=== PATIENT | male | born 1960 | race Caucasian/White ===

== ENCOUNTER 2018-12-08 21:50 | Emergency (ER) | payer MEDICAID, SELFPAY ==
[2018-12-08] MEDS ORDERED: Lidocaine 1% 10 ML MDV INJECT ONE (22:23)
[2018-12-08] MEDS ORDERED: Lidocaine 1% 50 ML MDV ONE (22:29)
--- NOTE | 2018-12-08 22:35 | EDM.PDOC ---
ED HPI GENERAL MEDICAL PROBLEM - General Chief Complaint: Trauma Stated Complaint: FELL AND CUT LEFT EARLOBE Time Seen by Provider: 12/08/18 22:00 Source of Information: Reports: Patient History Limitations: Reports: No Limitations - History of Present Illness INITIAL COMMENTS - FREE TEXT/NARRATIVE: 58 y/o male presented to ER with cc left ear laceration. He states he was outside when he fell and struck his left ear on his car. He does admit to drinking alcohol. His tetanus is up to date. He denies headache or neck pain. Trauma was called. Dr. Perez is at bedside evaluating patient Onset: Today, Sudden Onset Date: 12/08/18 Onset Time: 21:00 Location: Reports: Face, Other (left ear laceration) Quality: Reports: Ache, Stabbing Improves with: Reports: None, Medication Context: Reports: Trauma Associated Symptoms: Denies: Confusion, Fever/Chills, Nausea/Vomiting Left Ear Pain Score (Numeric/FACES): 4 - Related Data Allergies Allergy/AdvReac Type Severity Reaction Status Date / Time No Known Allergies Allergy Verified 03/10/16 18:24 CDT Home Meds: Home Meds Lisinopril [Prinivil] 40 mg PO DAILY 03/10/16 [History] Metoprolol Tartrate 25 mg PO DAILY 03/10/16 [History] Aspirin [Adult Low Dose Aspirin EC] 81 mg DAILY 04/30/18 [History] Citalopram Hydrobromide [Celexa] 40 mg DAILY 04/30/18 [History] Naproxen [Naprosyn] 500 mg BID 04/30/18 [History] Nitroglycerin 0.4 mg PO ASDIRECTED PRN 04/30/18 [History] Simvastatin [Zocor] 40 mg BEDTIME 04/30/18 [History] Hydrocodone/Acetaminophen [Max 7.5-325 Tablet] 1 each PO Q6HR PRN 4 Days #16 tablet 12/08/18 [Rx] cephALEXin [Keflex] 500 mg PO Q8H 7 Days #21 cap 12/08/18 [Rx] Past Medical History HEENT History: Reports: None Cardiovascular History: Reports: Hypertension, [place] Respiratory History: Reports: None Genitourinary History: Reports: None Musculoskeletal History: Reports: None Neurological History: Reports: None Psychiatric History: Reports: None Endocrine/Metabolic History: Reports: None Hematologic History: Reports: None Immunologic History: Reports: None Oncologic (Cancer) History: Reports: None Dermatologic History: Reports: None - Infectious Disease History Infectious Disease History: Reports: None - Past Surgical History Head Surgeries/Procedures: Reports: None HEENT Surgical History: Reports: None Cardiovascular Surgical History: Reports: None Respiratory Surgical History: Reports: None GI Surgical History: Reports: Appendectomy Male Surgical History: Reports: None Endocrine Surgical History: Reports: None Neurological Surgical History: Reports: None Musculoskeletal Surgical History: Reports: None Dermatological Surgical History: Reports: None Social & Family History - Family History Family Medical History: Noncontributory - Tobacco Use Smoking Status *Q: Current Every Day Smoker Years of Tobacco use: 24 Packs/Tins Daily: 1 - Recreational Drug Use Recreational Drug Use: No Review of Systems - Review of Systems Review Of Systems: See Below Constitutional: Denies: Chills, Fever Eyes: Reports: No Symptoms Ears: Reports: Other (left ear laceration). Denies: Dizziness Nose: Reports: No Symptoms Mouth/Throat: Reports: No Symptoms Respiratory: Denies: Shortness of Breath Cardiovascular: Denies: Chest Pain GI/Abdominal: Denies: Abdominal Pain Genitourinary: Reports: No Symptoms Musculoskeletal: Denies: Back Pain Skin: Reports: Wound (left ear laceration), Other Neurological: Reports: No Symptoms Psychiatric: Reports: No Symptoms ED EXAM, GENERAL - Physical Exam Exam: See Below Exam Limited By: No Limitations General Appearance: Alert, WD/WN, No Apparent Distress Eye Exam: Bilateral Eye: EOMI, PERRL Ears: Normal External Exam, Normal Canal, Hearing Grossly Normal, Normal TMs Ear Exam: Left Ear: Auricle Normal (large laceration) Nose: Normal Inspection, Normal Mucosa Throat/Mouth: Normal Inspection, Normal Lips, Normal Teeth, Normal Gums, Normal Oropharynx, Normal Voice, No Airway Compromise Head: Atraumatic, Normocephalic Neck: Normal Inspection, Supple, Non-Tender, Full Range of Motion Respiratory/Chest: No Respiratory Distress, Lungs Clear, Normal Breath Sounds, No Accessory Muscle Use, Chest Non-Tender Cardiovascular: Normal Peripheral Pulses, Regular Rate, Rhythm, No Edema, No Gallop, No JVD, No Murmur, No Rub Back Exam: Normal Inspection, Full Range of Motion Neurological: Alert, Oriented, CN II-XII Intact, Normal Gait, Normal Reflexes Psychiatric: Normal Affect, Normal Mood Skin Exam: Warm, Dry, Normal Color, No Rash, Wound/Incision (left ear auricle laceration moderate swelling noted. ) Lymphatic: No Adenopathy ED TRAUMA PROCEDURES - Laceration/Wound Repair Left Upper Anterior Ear Lac/Wound Length In cm: 10 Appearance: Irregular, Mildly Contaminated Distal NVT: Neuro & Vascular Intact Anesthetic Type: Local Local Anesthesia - Lidocaine (Xylocaine): 1% Plain Local Anesthetic Volume: 5cc Skin Prep: Chlorhexidine (Hibiciens), Providone-Iodine (Betadine) Exploration/Debridement/Repair: Wound Explored Closed With: Sutures Suture Size: 4-0 # of Sutures: 11 Suture Type: Nylon Suture Size: 4-0 # of Sutures: 3 Repaired With: Vicryl Tetanus Status Addressed: Yes Complications: No Course - Vital Signs Last Recorded V/S: Last Vital Signs Temp 96.2 F 12/08/18 22:02 Pulse 65 12/08/18 22:02 Resp 16 12/08/18 22:02 BP 140/95 H 12/08/18 22:02 Pulse Ox 99 12/08/18 22:02 - Orders/Labs/Meds Orders: Active Orders 24 hr Category Date Time Status Neck Soft Tissue [CR] Stat Exams 12/08/18 23:27 Taken Meds: Medications Discontinued Medications Generic Name Dose Route Start Last Admin Trade Name Danielle PRN Reason Stop Dose Admin Lidocaine HCl 10 ml 12/08/18 22:23 12/08/18 23:43 Xylocaine 1% INJECT 12/08/18 22:24 Not Given ONETIME ONE Lidocaine HCl Confirm 12/08/18 22:29 12/08/18 23:42 Xylocaine 1% Administered 12/08/18 22:30 Not Given Dose 50 ml .ROUTE .STK-MED ONE Lidocaine HCl 50 ml 12/08/18 22:40 12/08/18 23:42 Xylocaine 1% INJECT 12/08/18 22:41 Not Given ONETIME ONE Lidocaine HCl 50 ml 12/08/18 22:40 Xylocaine 1% INJECT 12/08/18 22:41 ONETIME ONE - Re-Assessments/Exams Free Text/Narrative Re-Assessment/Exam: 12/08/18 23:41 58 y/o male presents to ER with cc left ear laceration after falling on a car. He received laceration repair and his condition improved. I will discharge with Keflex for outpatient antibiotic therapy. I will discharge home with a small amount of pain medication. I instructed him not to drink, drive or operate machinery. Instructed to follow up with his PCP in 7-10 days to have sutures removed. Patient verbalized understanding and is comfortable with plan for discharge. He is stable at time of discharge. Departure - Departure Time of Disposition: 23:47 Disposition: Home, Self-Care 01 Condition: Good Clinical Impression: Ear lobe laceration Qualifiers: Encounter type: initial encounter Laterality: left Qualified Code(s): S01.312A - Laceration without foreign body of left ear, initial encounter Head trauma Qualifiers: Encounter type: initial encounter Qualified Code(s): S09.90XA - Unspecified injury of head, initial encounter - Discharge Information Prescriptions: Hydrocodone/Acetaminophen [Max 7.5-325 Tablet] 1 each PO Q6HR PRN 4 Days #16 tablet PRN Reason: Pain cephALEXin [Keflex] 500 mg PO Q8H 7 Days #21 cap Instructions: Skin Tear Care, [id number], Laceration Care, Adult, Head Injury , Adult, [id number] Referrals: PCP,None [Primary Care Provider] - Forms: ED Department Discharge Additional Instructions: You have been diagnosis with left ear laceration and head injury. I prescribed Keflex for antibiotic therapy. Follow up with your PCP in 7-10 days to have sutures removed or come to the ER and have them taken. Your have been prescribed Max for pain. Do not take this medication and drink, drive or operate machinery. Return to the ER for any new or acute worsening symptoms. - My Orders Last 24 Hours: My Active Orders 12/08/18 23:27 Neck Soft Tissue [CR] Stat - Assessment/Plan Last 24 Hours: My Active Orders 12/08/18 23:27 Neck Soft Tissue [CR] Stat
[2018-12-08] MEDS ORDERED: Lidocaine 1% 20 ML MDV INJECT ONE (22:40)
[2018-12-08] MEDS ORDERED: Lidocaine 1% 50 ML MDV INJECT ONE (22:40)
[2018-12-09] MEDS ORDERED: Cephalexin 500 MG Cap PO ONE (00:01)
[2018-12-09 00:34] VITALS: BP 110/75
--- NOTE | 2018-12-09 08:42 | CR ---
Neck: Two views were obtained of the posterior neck and posterior scalp Small curvilinear foreign body projected over the calvarium at the level of the mastoid sinus in a lateral direction. No additional abnormality is appreciated. Impression: 1. Curvilinear foreign body as noted above. Diagnostic code #3
== END 2018-12-09 | disposition home or self-care (01) ==
LOC: JD.ED 21:50
DX: S01.312A Laceration without foreign body of left ear, initial encounter (principal); S09.90XA Unspecified injury of head, initial encounter; I10 Essential (primary) hypertension; I25.2 Old myocardial infarction; F17.210 Nicotine dependence, cigarettes, uncomplicated; Z79.82 Long term (current) use of aspirin; Z79.899 Other long term (current) drug therapy; W17.89XA Other fall from one level to another, initial encounter
CPT/HCPCS: 12015; 70360; 99283; A9270; J2001; 12044

== ENCOUNTER 2019-10-05 14:11 | Emergency (ER) | payer MEDICAID ==
[2019-10-05] MEDS ORDERED: Sodium Chloride 0.9% 10 ML Syringe FLUSH PRN (14:22)
[2019-10-05 14:28] VITALS: BP 167/96; PULSE 69
--- NOTE | 2019-10-05 14:43 | CT ---
Head CT Technique: Multiple axial sections through the brain were obtained. Intravenous contrast was not utilized. Comparison: No prior intracranial imaging is available. Findings: Ventricles along with basal cisterns and sulci over the convexities are mildly prominent. Diminished density is noted within the periventricular white matter compatible with small vessel ischemic demyelination change. No other abnormal parenchymal densities are seen. No evidence of intracranial hemorrhage. No midline shift or mass-effect is appreciated. Atherosclerotic calcification is seen within the vertebral vessels and within the carotid siphon. Bone window settings were reviewed. Visualized mastoid sinuses are clear. Minimal mucosal thickening is partially visualized within the upper right maxillary sinus. No acute calvarial abnormality is appreciated. Impression: 1. Minimal mucosal thickening partially visualized within the upper right maxillary sinus most likely chronic. 2. Senescent change as noted above. 3. No acute intracranial abnormality is appreciated. Diagnostic code #2 This report was dictated in [place] Standard Time
--- NOTE | 2019-10-05 16:12 | MR ---
MRI brain Technique: T1 sagittal; T2, T2 FLAIR, T1 and diffusion axial; T1 FLAIR coronal images were obtained. Additional T2 gradient echo coronal and axial images were also obtained. Comparison: Previous head CT study performed earlier on the same day (2:26 PM). Findings: There may be a very minimal area of increased diffusion within the posterior right basal ganglia. No other diffusion abnormalities are seen. Normal signal void is seen within the major cerebral arteries within the skull base. Ventricles along with basal cisterns and sulci over the convexities are mildly prominent. Diffuse increased signal is identified within the periventricular and subcortical white matter which has a pattern typical of small vessel ischemic demyelination change. Several old white matter infarcts are noted within the right periventricular white matter. No other abnormal signal is seen within the brain parenchyma. No midline shift or mass-effect is appreciated. Impression: 1. Possible very minimal area of increased diffusion within the posterior right basal ganglia. Very early lacunar infarct is difficult to exclude. 2. Senescent change as noted above. 3. No additional abnormality is appreciated. Diagnostic code #3 This report was dictated in [place] Standard Time
[2019-10-05] MEDS ORDERED: Aspirin 81 MG Tab.Chew PO ONE (16:32)
--- NOTE | 2019-10-05 16:40 | EDM.PDOC ---
ED HPI GENERAL MEDICAL PROBLEM - General Chief Complaint: Neurological Problem Stated Complaint: LT ARM NUMBNESS Time Seen by Provider: 10/05/19 14:22 Source of Information: Reports: Patient History Limitations: Reports: No Limitations - History of Present Illness INITIAL COMMENTS - FREE TEXT/NARRATIVE: The patient presents with left sided facial, arm and leg numbness. This all started yesterday morning when he woke up. He has no weakness anywhere. He has never had this happen before. He has no headache, fever, chills, cough, congestion, runny nose, chest pain or shortness of breath. He has no abdominal pain, nausea or vomiting. He says he has high blood pressure and he had an OR in the past. Onset: Gradual Duration: Day(s): (2) Severity: Moderate Improves with: Reports: None Worsens with: Reports: None Associated Symptoms: Reports: No Other Symptoms - Related Data Allergies Allergy/AdvReac Type Severity Reaction Status Date / Time No Known Allergies Allergy Verified 10/05/19 14:27 Home Meds: Home Meds Metoprolol Tartrate 25 mg PO DAILY 03/10/16 [History] lisinopriL [Prinivil] 40 mg PO DAILY 03/10/16 [History] Past Medical History HEENT History: Reports: None Cardiovascular History: Reports: Hypertension, [place] Respiratory History: Reports: None Genitourinary History: Reports: None Musculoskeletal History: Reports: None Neurological History: Reports: None Psychiatric History: Reports: None Endocrine/Metabolic History: Reports: None Hematologic History: Reports: None Immunologic History: Reports: None Oncologic (Cancer) History: Reports: None Dermatologic History: Reports: None - Infectious Disease History Infectious Disease History: Reports: None - Past Surgical History Head Surgeries/Procedures: Reports: None HEENT Surgical History: Reports: None Cardiovascular Surgical History: Reports: None Respiratory Surgical History: Reports: None GI Surgical History: Reports: Appendectomy Male Surgical History: Reports: None Endocrine Surgical History: Reports: None Neurological Surgical History: Reports: None Musculoskeletal Surgical History: Reports: None Dermatological Surgical History: Reports: None Social & Family History - Family History Family Medical History: Noncontributory - Tobacco Use Smoking Status *Q: Current Every Day Smoker Years of Tobacco use: 36 Packs/Tins Daily: 0.5 - Caffeine Use Caffeine Use: Reports: None - Recreational Drug Use Recreational Drug Use: No ED ROS GENERAL - Review of Systems Review Of Systems: See Below Constitutional: Reports: No Symptoms HEENT: Reports: No Symptoms Respiratory: Reports: No Symptoms Cardiovascular: Reports: No Symptoms Endocrine: Reports: No Symptoms GI/Abdominal: Reports: No Symptoms : Reports: No Symptoms Musculoskeletal: Reports: No Symptoms Neurological: Reports: Numbness ED EXAM, NEURO - Physical Exam Exam: See Below Exam Limited By: No Limitations General Appearance: Alert, No Apparent Distress Ears: Normal External Exam Nose: Normal Inspection Head Exam: Atraumatic, Normocephalic Neck: Normal Inspection Respiratory/Chest: No Respiratory Distress, Lungs Clear, Normal Breath Sounds Cardiovascular: Regular Rate, Rhythm, No Edema, No Murmur GI/Abdominal: Soft, Non-Tender, No Organomegaly, No Mass Neurological: Alert, Other (Numbness to the left face, arm and leg. No weakness.) EKG INTERPRETATION EKG Date: 10/05/19 Time: 14:21 Rhythm: NSR Rate (Beats/Min): 60 [place]: Normal P-Wave: Present QRS: Normal ST-T: Other (Flipped T waves in V3 and V4) Course - Vital Signs Last Recorded V/S: Last Vital Signs Temp 97.3 F 10/05/19 14:22 Pulse 69 10/05/19 14:22 Resp 16 10/05/19 14:22 BP 167/96 H 10/05/19 14:22 Pulse Ox 96 10/05/19 14:22 - Orders/Labs/Meds Orders: Active Orders 24 hr Category Date Time Status Cardiac Monitoring [RC] . DIRECTED Care 10/05/19 14:22 Active EKG Documentation Completion [RC] STAT Care 10/05/19 14:23 Active Peripheral IV Care [RC] . DIRECTED Care 10/05/19 14:23 Active Sodium Chloride 0.9% [Saline Flush] Med 10/05/19 14:22 Active 10 ml FLUSH ASDIRECTED PRN Peripheral IV Insertion Adult [OM.PC] Stat Oth 10/05/19 14:22 Ordered Medication Orders Sodium Chloride (Saline Flush) 10 ml FLUSH ASDIRECTED PRN PRN Reason: Keep Vein Open Last Admin: 10/05/19 14:32 Dose: 10 ml Labs: Laboratory Tests 10/05/19 10/05/19 10/05/19 Range/Units 14:20 14:25 14:25 WBC 7.30 (4.23-9.07) K/mm3 RBC 4.66 (4.63-6.08) M/mm3 Hgb 15.2 (13.7-17.5) gm/dl Hct 44.4 (40.1-51.0) % MCV 95.3 H (79.0-92.2) fl MCH 32.6 H (25.7-32.2) pg MCHC 34.2 (32.2-35.5) g/dl RDW Std Deviation 42.3 (35.1-43.9) fL Plt Count 305 (163-337) K/mm3 MPV 9.7 (9.4-12.3) fl Neut % (Auto) 63.1 (34.0-67.9) % Lymph % (Auto) 22.1 (21.8-53.1) % [place] % (Auto) 11.0 (5.3-12.2) % Eos % (Auto) 2.9 (0.8-7.0) Baso % (Auto) 0.8 (0.1-1.2) % Neut # (Auto) 4.61 (1.78-5.38) K/mm3 Lymph # (Auto) 1.61 (1.32-3.57) K/mm3 [place] # (Auto) 0.80 (0.30-0.82) K/mm3 Eos # (Auto) 0.21 (0.04-0.54) K/mm3 Baso # (Auto) 0.06 (0.01-0.08) K/mm3 PT 10.6 (9.7-12.0) SECONDS INR 0.97 APTT 26 (22-31) SECONDS Sodium (136-145) mEq/L Potassium (3.5-5.1) mEq/L Chloride (98-107) mEq/L Carbon Dioxide (21-32) mEq/L Anion Gap (5-15) BUN (7-18) mg/dL Creatinine (0.7-1.3) mg/dL Est Cr Clr Drug Dosing mL/min Estimated GFR (MDRD) (>60) mL/min BUN/Creatinine Ratio (14-18) Glucose (80-115) mg/dL POC Glucose 80 (80-115) mg/dL Calcium (8.5-10.1) mg/dL Total Bilirubin (0.2-1.0) mg/dL AST (15-37) U/L ALT (16-63) U/L Alkaline Phosphatase (46-116) U/L Troponin I (0.00-0.056) ng/mL Total Protein (6.4-8.2) g/dl Albumin (3.4-5.0) g/dl Globulin gm/dL Albumin/Globulin Ratio (1-2) 10/05/19 Range/Units 14:25 WBC (4.23-9.07) K/mm3 RBC (4.63-6.08) M/mm3 Hgb (13.7-17.5) gm/dl Hct (40.1-51.0) % MCV (79.0-92.2) fl MCH (25.7-32.2) pg MCHC (32.2-35.5) g/dl RDW Std Deviation (35.1-43.9) fL Plt Count (163-337) K/mm3 MPV (9.4-12.3) fl Neut % (Auto) (34.0-67.9) % Lymph % (Auto) (21.8-53.1) % [place] % (Auto) (5.3-12.2) % Eos % (Auto) (0.8-7.0) Baso % (Auto) (0.1-1.2) % Neut # (Auto) (1.78-5.38) K/mm3 Lymph # (Auto) (1.32-3.57) K/mm3 [place] # (Auto) (0.30-0.82) K/mm3 Eos # (Auto) (0.04-0.54) K/mm3 Baso # (Auto) (0.01-0.08) K/mm3 PT (9.7-12.0) SECONDS INR APTT (22-31) SECONDS Sodium 138 (136-145) mEq/L Potassium 4.6 (3.5-5.1) mEq/L Chloride 101 (98-107) mEq/L Carbon Dioxide 28 (21-32) mEq/L Anion Gap 13.6 (5-15) BUN 17 (7-18) mg/dL Creatinine 1.1 (0.7-1.3) mg/dL Est Cr Clr Drug Dosing 68.23 mL/min Estimated GFR (MDRD) > 60 (>60) mL/min BUN/Creatinine Ratio 15.5 (14-18) Glucose 100 (80-115) mg/dL POC Glucose (80-115) mg/dL Calcium 9.4 (8.5-10.1) mg/dL Total Bilirubin 0.4 (0.2-1.0) mg/dL AST 21 (15-37) U/L ALT 25 (16-63) U/L Alkaline Phosphatase 99 (46-116) U/L Troponin I < 0.017 (0.00-0.056) ng/mL Total Protein 8.3 H (6.4-8.2) g/dl Albumin 3.7 (3.4-5.0) g/dl Globulin 4.6 gm/dL Albumin/Globulin Ratio 0.8 L (1-2) Meds: Medications Generic Name Dose Route Start Last Admin Trade Name Freq PRN Reason Stop Dose Admin Sodium Chloride 10 ml 10/05/19 14:22 10/05/19 14:32 Saline Flush FLUSH 10 ml ASDIRECTED PRN Administration Keep Vein Open Discontinued Medications Generic Name Dose Route Start Last Admin Trade Name Freq PRN Reason Stop Dose Admin Aspirin 81 mg 10/05/19 16:32 Aspirin PO 10/05/19 16:33 ONETIME ONE - Re-Assessments/Exams Free Text/Narrative Re-Assessment/Exam: 10/05/19 16:42 A stroke alert was called and I went in to see the patient right away. His last time known well is yesterday at 4am. I ordered an IV saline lock, EKG, CT of the head, and labs. His EKG shows a NSR with no acute changes. His CT shows nothing acute. His CBC and CMP look good. His troponin is negative. I was able to get an MRI of his brain and it shows possible very minimal area of increased diffusion within the posterior right basal ganglia. Very early lacunar infarct is difficult to exclude. Senescent change as noted. No additional abnormality is appreciated. I called [facility] in [place] and talked with Dr Garnett the neurologist net developer consultant and he recommended aspirin and a statin. He was an outpatient echo and lipid panel. Departure - Departure Time of Disposition: 16:50 Disposition: Home, Self-Care 01 Condition: Good Clinical Impression: Lacunar infarct, acute - Discharge Information *PRESCRIPTION DRUG MONITORING PROGRAM REVIEWED*: Not Applicable *COPY OF PRESCRIPTION DRUG MONITORING REPORT IN PATIENT MIGUEL: Not Applicable Referrals: PCP,Not In Area [Primary Care Provider] - Forms: ED Department Discharge Additional Instructions: Take your medication as prescribed. Follow up with your doctor within a week. Please return if you are worse. Sepsis Event Note - Evaluation Sepsis Screening Result: No Definite Risk - Focused Exam Vital Signs: Vital Signs Temp Pulse Resp BP Pulse Ox 10/05/19 14:22 97.3 F 69 16 167/96 H 96 Date Exam was Performed: 10/05/19 Time Exam was Performed: 16:50 - My Orders Last 24 Hours: My Active Orders 10/05/19 14:22 Cardiac Monitoring [RC] . DIRECTED Sodium Chloride 0.9% [Saline Flush] 10 ml FLUSH ASDIRECTED PRN Peripheral IV Insertion Adult [OM.PC] Stat 10/05/19 14:23 EKG Documentation Completion [RC] STAT Peripheral IV Care [RC] . DIRECTED - Assessment/Plan Last 24 Hours: My Active Orders 10/05/19 14:22 Cardiac Monitoring [RC] . DIRECTED Sodium Chloride 0.9% [Saline Flush] 10 ml FLUSH ASDIRECTED PRN Peripheral IV Insertion Adult [OM.PC] Stat 10/05/19 14:23 EKG Documentation Completion [RC] STAT Peripheral IV Care [RC] . DIRECTED
== END 2019-10-05 17:03 | disposition home or self-care (01) ==
LOC: JD.ED 14:11
DX: I63.81 Other cerebral infarction due to occlusion or stenosis of small artery (principal); I10 Essential (primary) hypertension; I25.2 Old myocardial infarction; F17.210 Nicotine dependence, cigarettes, uncomplicated; Z79.899 Other long term (current) drug therapy
CPT/HCPCS: 36415; 70450; 70551; 80053; 82962; 84484; 85025; 85610; 85730; 93005; 99284; A9270; 93010

== ENCOUNTER 2021-12-06 11:25 | Inpatient (IN) | payer MEDICARE, MEDICAID ==
[2021-12-06] MEDS ORDERED: Sodium Chloride 0.9% 10 ML Syringe FLUSH PRN (12:37)
[2021-12-06] MEDS ORDERED: Iopamidol 755 Mg/ML 100 ML Bottle IVPUSH ONE (12:37)
[2021-12-06] MEDS ORDERED: Sodium Chloride 0.9% 100 ML IV SCH (12:45)
[2021-12-06] MEDS: Sodium Chloride 0.9% 10 ML Syringe FLUSH PRN ×2 (12:46→12:54)
[2021-12-06] MEDS ORDERED: Acetaminophen 325 MG Tab PO PRN (16:25)
[2021-12-06] MEDS ORDERED: Temazepam 7.5 MG Cap PO PRN (16:25)
[2021-12-06] MEDS ORDERED: oxyCODONE 5 MG Tab PO PRN (16:25)
[2021-12-06] MEDS ORDERED: Docusate Sodium 100 MG Cap PO PRN (16:25)
[2021-12-06] MEDS ORDERED: Ondansetron 4 MG Tab.DIS PO PRN (16:25)
[2021-12-06] MEDS ORDERED: Sodium Polystyrene Sulfonate 15 GM/60 ML Susp 60 ML Bot PO ONE (16:50)
[2021-12-06] MEDS: Sodium Chloride 0.9% 1,000 ML IV SCH (19:05)
[2021-12-07] MEDS: Sodium Chloride 0.9% 1,000 ML IV SCH ×2 (06:24→16:35)
[2021-12-07] MEDS ORDERED: Metoprolol Tartrate 25 MG Tab PO ONE (08:15)
[2021-12-07] MEDS: Nicotine 14 MG/24 Hr Patch TRDERM SCH (08:34)
[2021-12-07] MEDS: Aspirin 81 MG Tab.EC PO SCH (08:35)
[2021-12-07] MEDS: Metoprolol Tartrate 25 MG Tab PO SCH ×2 (10:31→21:55)
[2021-12-07] MEDS: Pravastatin 20 MG Tab PO SCH (21:55)
[2021-12-08] MEDS: Sodium Chloride 0.9% 1,000 ML IV SCH (03:23)
[2021-12-08] MEDS: Nicotine 14 MG/24 Hr Patch TRDERM SCH (09:16)
[2021-12-08] MEDS: Metoprolol Tartrate 25 MG Tab PO SCH ×2 (09:17→20:40)
[2021-12-08] MEDS: Aspirin 81 MG Tab.EC PO SCH (09:18)
[2021-12-08] MEDS: Pravastatin 20 MG Tab PO SCH (20:42)
[2021-12-09] MEDS: Nicotine 14 MG/24 Hr Patch TRDERM SCH (08:53)
[2021-12-09] MEDS: Aspirin 81 MG Tab.EC PO SCH (08:55)
[2021-12-09] MEDS: Metoprolol Tartrate 25 MG Tab PO SCH (08:55)
[2021-12-09 08:56] VITALS: PULSE 55
[2021-12-09 12:00] VITALS: BP 125/75
== END 2021-12-09 14:45 | disposition home or self-care (01) | DRG 65 ==
LOC: JD.ED 11:25 → JD.MS 16:25 → JD.OB 12-07 18:59 → JD.MS 12-07 18:59 → UNDODISIN 12-09 14:45
PROVIDERS: ADMIT Internal Medicine; ATTEND Internal Medicine
DX: I63.81 Other cerebral infarction due to occlusion or stenosis of small artery (principal); G81.91 Hemiplegia, unspecified affecting right dominant side; I10 Essential (primary) hypertension; E78.5 Hyperlipidemia, unspecified; F17.200 Nicotine dependence, unspecified, uncomplicated; I25.2 Old myocardial infarction; Z90.49 Acquired absence of other specified parts of digestive tract; Z79.82 Long term (current) use of aspirin; Z79.899 Other long term (current) drug therapy
CPT/HCPCS: 36415; 70450; 70450-26; 70496; 70496-26; 70498; 70498-26; 70551; 70551-26; 80053; 80061; 82088; 82947; 83036; 83735; 84244; 84300; 84484; 85025; 85610; 85730; 93005; 97116-GP; 97162-GP; 99222; 99232; 99285-25; A9270-GY; J3490; J7030; Q9967